=== PATIENT | female | born 2000 | race Caucasian/White ===

== ENCOUNTER 2019-01-20 11:58 | Emergency (ER) | payer SELFPAY ==
[2019-01-20 12:13] VITALS: BP 100/70
--- NOTE | 2019-01-20 13:30 | UC ---
Eye Complaint HPI - HPI Summary HPI Summary: 18 year old female, student at [employer], presents with L upper eyelid swelling, no drainage, x 1-2 days. Minimal redness, mild pain with blinking. no vision changes. - History of Current Complaint Chief Complaint: UCSkin Stated Complaint: EYE PAIN Time Seen by Provider: 01/20/19 13:29 Hx Obtained From: Patient Hx Last Menstrual Period: 12/09/18 ?: No Onset/Duration: Sudden Onset Timing: Constant Severity Initially: Moderate Severity Currently: Moderate - with blinking. Pain Intensity: 5 Pain Scale Used: 0-10 Numeric Location of Injury: Eye Lid (upper) Character: Dull - Allergies/Home Medications Allergies/Adverse Reactions: Allergies Allergy/AdvReac Type Severity Reaction Status Date / Time No Known Allergies Allergy Verified 01/20/19 12:08 Home Medications: Home Medications Norethindrone-E.estradiol-Iron [Blisovi Fe 1.5/30 1.5-30 mg-Mcg] 1 tab PO DAILY 01/20/19 [History Confirmed 01/20/19] PMH/Surg Hx/FS Hx/Imm Hx Previously Healthy: Yes - Surgical History Surgical History: None - Family History Known Family History: Positive: Non-Contributory - Social History Alcohol Use: None Substance Use Type: None Smoking Status (MU): Never Smoked Tobacco Review of Systems All Other Systems Reviewed And Are Negative: Yes Constitutional: Positive: Negative. Negative: Fever, Chills Eyes: Positive: Other - swelling l eyelid. Negative: Blurred Vision, Diplopia, Drainage, Eye Redness, Photophobia Motor: Positive: Negative Musculoskeletal: Positive: Negative Neurological: Positive: Negative Is Patient Immunocompromised?: No Physical Exam Triage Information Reviewed: Yes Appearance: Well-Appearing, No Pain Distress, Well-Nourished Vital Signs: Initial Vital Signs Temp 98.6 F 01/20/19 12:09 Pulse 64 01/20/19 12:09 Resp 18 01/20/19 12:09 BP 100/70 01/20/19 12:09 Pulse Ox 98 01/20/19 12:09 Vital Signs Reviewed: Yes Eyes: Positive: Conjunctiva Clear, Other: - EMOI, PERRLA Upper eyelid swelling , minimal erythema, no warmth, no tenderness with palpation. no drainage noted , no pain with EMO. eyelid inversion without drainage, redness. ENT: Positive: Hearing grossly normal Eye Complaint Course/Dx - Course Course Of Treatment: Physical examination findings consistent with a stye -Warm compresses as much as possible during the day - Erythromycin ointment at bedtime, thin layer to inner lower eyelid - Return with increased swelling, redness, pain, fever, vision changes. - Wash eyes daily with baby shampoo to prevent further occurrences. - Follow up with primary wihtin 2-3 days if no resolution Information: Most hordeola resolve spontaneously over several days and do not require specific intervention. They can be managed with warm compresses, which are placed on the face for about 15 minutes four times per day, in order to facilitate drainage. Massage and gentle wiping of the affected eyelid after the warm compress can also aid in drainage. Patients should discontinue eye makeup to support healing. If, despite management with warm compresses, the lesion does not reduce in size within one to two weeks, the patient should be referred to an community health director for incision and drainage. - Differential Dx/Diagnosis Differential Diagnosis/HQI/PQRI: Conjunctivitis, Uveitis Provider Diagnosis: [facility] Discharge ED - Sign-Out/Discharge Documenting (check all that apply): Patient Departure All imaging exams completed and their final reports reviewed: No Studies - Discharge Plan Condition: Good Disposition: HOME Prescriptions: Erythromycin OPTH OINT* [Erythromycin 0.5% OPTH OINT*] 1 applic LEFT EYE BEDTIME #1 ophth.oint Patient Education Materials: Lupe (ED) Referrals: No Primary Care Phys,NOPCP [Primary Care Provider] - Additional Instructions: -Warm compresses as much as possible during the day - Erythromycin ointment at bedtime, thin layer to inner lower eyelid - Return with increased swelling, redness, pain, fever, vision changes. - Wash eyes daily with baby shampoo to prevent further occurrences. - Follow up with primary wihtin 2-3 days if no resolution Information: Most hordeola resolve spontaneously over several days and do not require specific intervention. They can be managed with warm compresses, which are placed on the face for about 15 minutes four times per day, in order to facilitate drainage. Massage and gentle wiping of the affected eyelid after the warm compress can also aid in drainage. Patients should discontinue eye makeup to support healing. If, despite management with warm compresses, the lesion does not reduce in size within one to two weeks, the patient should be referred to an community health director for incision and drainage. - Billing Disposition and Condition Condition: GOOD Disposition: Home
== END 2019-01-20 13:53 | disposition home or self-care (01) ==
LOC: UCEAST 11:58
DX: H00.014 Hordeolum externum left upper eyelid (principal)
CPT/HCPCS: 99202; G0463